=== PATIENT | male | born 1960 | race African-American/Black ===

== ENCOUNTER 2017-04-24 13:35 | Emergency (ER) | payer OTHER ==
[~2017-04-24] VITALS: Ht 180.3 cm; Wt 88.0 kg
[2017-04-24 13:35] VITALS: BP 140/65; PULSE 95; RESP 20; TEMP 100.4; O2SAT 99
--- NOTE | 2017-04-24 13:35 | NUR ---
Pt BIB W/C and placed to ER bed 02, placed on cardiac rehabilitation program director, report given to MYA Ochoa.
--- NOTE | 2017-04-24 13:40 | NUR ---
Patient, awake, alert and oriented x 4, BIB from [facility] [facility] for dizziness. Upon assessment, pt presents as patient complaining of generalized weakness. Patient's states "he fainted while we were in the car. He was out for a few seconds." Denies chest pain, shortness of breath, chills and fever. No other complaints/injuries per patient, none noted.
[2017-04-24] MEDS ORDERED: ACETAMINOPHEN 500 MG TABLET PO ONE (14:30)
--- NOTE | 2017-04-24 14:30 | NUR ---
Patient medicated per MD orders.
[2017-04-24 14:31] LABS: HEMATOCRIT 28.8 % (36-54); HEMOGLOBIN 9.6 g/dL (14.0-18.0); MEAN CORPUSCULAR HEMOGLOBIN 28 pg (27-31); MEAN CORPUSCULAR HGB CONC 34 % (32-36); MEAN CORPUSCULAR VOLUME 84 fL (79.0-98.0); RED BLOOD CELL COUNT(AUTO) 3.45 MIL/uL (4.2-6.2); RED CELL DISTRIBUTION WIDTH 15.7 % (9.0-15.0); WHITE BLOOD COUNT (AUTO) 20.9 K/uL (4.8-10.8)
[2017-04-24 14:32] LABS: PLATELET COUNT (AUTO) 298 K/uL (130-430)
[2017-04-24 14:38] LABS: ANION GAP 12 (5-15); CALCIUM 10.1 mg/dL (8.4-11.0); CHLORIDE 103 mmol/L (98-107); CREATININE 0.98 mg/dL (0.55-1.30); GLUCOSE 107 mg/dL (70-99); POTASSIUM 3.7 mmol/L (3.5-5.1); SODIUM SERUM 136 mmol/L (136-145); UREA NITROGEN, BLOOD 13 mg/dL (8-21)
[2017-04-24 14:39] LABS: GFR AFRICAN AMERICAN 101 mL/min (>90); INR 1.3 (0.80-1.20); PROTHROMBIN TIME 13.3 SECS (9.5-12.5)
[2017-04-24 14:41] LABS: BAND % (MANUAL) 2 % (0-6); BASOPHILS % (MANUAL) 0 % (0-2); EOSINOPHILS % (MANUAL) 0 % (0-7); LYMPHOCYTES % (MANUAL) 14 % (20-46); MONOCYTES % (MANUAL) 3 % (0-11)
[2017-04-24] MEDS ORDERED: PIPERACILLIN/TAZO 3.375 GM in NS 50 ML IV ONE (14:45)
[2017-04-24 14:55] LABS: ALANINE AMINOTRANSFERASE 18 U/L (12-78); ALBUMIN 2.5 g/dL (3.4-4.8); ASPARTATE AMINOTRANSFERASE 51 U/L (10-37); FREE T4 (FREE THYROXINE) 0.8 ng/dL (0.6-1.6); TOTAL BILIRUBIN 0.6 mg/dL (0.0-1.0)
[2017-04-24 14:56] LABS: ALCOHOL, BLOOD < 3 mg/dL (<10)
--- NOTE | 2017-04-24 14:57 | NUR ---
Dr. Lomeli at bedside examining patient.
--- NOTE | 2017-04-24 14:58 | NUR ---
No adverse reaction to medication noted.
--- NOTE | 2017-04-24 15:00 | NUR ---
# 20 gauge angiocath placed to right FA by MYA Pickard. Use of asceptic technique. Opsite placed over site. Blood return noted. Blood for lab drawn from site. Flushed with 10 cc of normal saline. No evidence of infiltration noted. Patient tolerated well.
[2017-04-24] MEDS ORDERED: NACL 0.9% 1,000 ML IV ONE (15:15)
[2017-04-24] MEDS ORDERED: PIPERACILLIN/TAZOBACTAM 3.375 GM/VIAL (ZOSYN) IV ONE (15:18)
[2017-04-24 15:24] LABS: BILIRUBIN,URINE NEGATIVE (NEGATIVE); BLOOD, URINE NEGATIVE (NEGATIVE); CLARITY/URINE CLEAR (CLEAR); COLOR,URINE YELLOW (YELLOW); GLUCOSE,URINE NEGATIVE (NEGATIVE); KETONES,URINE TRACE (NEGATIVE); LEUKOCYTE ESTERASE ,URINE NEGATIVE (NEGATIVE); NITRITE, URINE NEGATIVE (NEGATIVE); PROTEIN URINE 1+ (NEGATIVE); UROBILINOGEN,URINE 0.2 (0.2-1.0)
[2017-04-24 15:31] LABS: BACTERIA,URINE FEW /HPF (None Seen); MUCUS,URINE 1+ /LPF (None Seen); RBC,URINE 0-3 /HPF (0-3)
--- NOTE | 2017-04-24 15:40 | NUR ---
Patient resting quietly. No acute distress noted. Vital signs within normal range.
[2017-04-24 15:41] LABS: BARBITURATE, URINE NEGATIVE (NEG <=200); BENZODIAZEPINE, URINE NEGATIVE (NEG <=150); CANNABINOID, URINE NEGATIVE (NEG <=50); COCAINE, URINE NEGATIVE (NEG <=150); METHAMPHETAMINES SCREEN,URINE NEGATIVE (NEG <=500); OPIATE, URINE POSITIVE (NEG <=100); PHENCYCLIDINE SCREEN,URINE NEGATIVE (NEG <=25); UR TRICYCLIC ANTIDEPRESSANTS NEGATIVE (NEG <=300); URINE AMPHETAMINE NEGATIVE (NEG <=500); URINE METHADONE NEGATIVE (NEG <=200); URINE OXYCODONE SCREEN NEGATIVE (NEG <=100); URINE PROPOXYPHENE SCREEN NEGATIVE (NEG <=300)
--- NOTE | 2017-04-24 17:53 | NUR ---
Patient to be transferred to [facility]. Is being transferred due to higher level of care. Receiving facility has accepting physician and available space. ER physician has signed transfer form. Patient or responsible constitution party has agreed to transfer and signed form. Patient belongings inventoried and will be sent with patient. Copy of nursing notes, lab reports, EKG, Physicians Orders and X-rays to be sent with patient. Report called to Rosa Elena at receiving facility. Receiving physician is Dr. Mkceon. ALS ambulance service has been called for transfer. ETA is 40 minutes.
[2017-04-24 18:13] VITALS: BP 128/81; PULSE 98; RESP 18; TEMP 99; O2SAT 100
--- NOTE | 2017-04-24 18:14 | NUR ---
Patient transferred to [facility] ED via ALS ambulance, [facility]. All paper work provided. No signs of distress, vss.
== END 2017-04-24 18:13 | disposition short-term general hospital (02) ==
LOC: SED 13:35
DX: D64.9 Anemia, unspecified (principal); D72.829 Elevated white blood cell count, unspecified; R55 Syncope and collapse; E11.9 Type 2 diabetes mellitus without complications; Z90.49 Acquired absence of other specified parts of digestive tract; Z85.858 Personal history of malignant neoplasm of other endocrine glands
CPT/HCPCS: 36415; 70450; 71010; 74000; 80053; 80307; 81000; 82140; 83605; 83880; 84439; 84484; 85007; 85027; 85610; 87040; 93005; 96361; 96365; 99285; G0482; J2543; J7030; J7050